=== PATIENT | male | born 1955 | race Caucasian/White ===

== ENCOUNTER 2019-09-05 17:02 | Outpatient (CLI) | payer MEDICARE, SELFPAY ==
[2019-09-05 19:57] LABS: Basophils # 0.1 10^3/uL (0.0-0.1); Basophils % 0.9 %; Eosinophils # 0.2 10^3/uL (0.0-0.8); Eosinophils % 3.1 %; Hematocrit 45.7 % (42.0-52.0); Hemoglobin 14.3 g/dL (11.7-16.6); Lymphocytes # 1.6 10^3/uL (0.8-4.8); Lymphocytes % 24.7 %; Mean Corpuscular HGB Conc 31.3 g/dL (30.0-36.0); Mean Corpuscular Hemoglobin 26.9 pg (28.0-34.0); Mean Corpuscular Volume 86.1 fL (80-94); Mean Platelet Volume 11.1 fL (7.4-10.4); Monocytes # 0.4 10^3/uL (0.2-0.9); Monocytes % 5.9 %; Neutrophils # 4.2 10^3/uL (1.8-7.7); Neutrophils % 64.6 %; Nucleated Red Blood Cells % 0 %; Platelet Count 243 10^3/cmm (130-400); Red Blood Count 5.31 10^6/uL (4.1-5.3); Red Cell Distribution Width 13.3 % (12.1-15.1); White Blood Count 6.4 10^3/uL (4.0-10.0)
[2019-09-05 23:52] LABS: Thyroid Stimulating Hormone 1.84 uIU/mL (0.27-4.20)
[2019-09-06 00:15] LABS: Alanine Aminotransferase 19 U/L (0-41); Albumin Level 4.6 g/dL (3.5-5.2); Alkaline Phosphatase 58 IU/L (40-130); Anion Gap 18.5 (5-19); Blood Urea Nitrogen 14 mg/dL (8-23); Carbon Dioxide 24 mmol/L (22-29); Chloride 103 mmol/L (98-107); Chol HDL Ratio 4.02 mg/dL (1.0-5.00); Cholesterol 185 mg/dL (0-200); Globulin 2.1 g/dL (1.3-4.6); Glomerular Filtration Rate 85.2 mL/min (90-130); Glucose 95 mg/dL (65-115); HDL Cholesterol 46 mg/dL (60-100); LDL Cholesterol Calculated 119 mg/dL (50-129); LDL HDL Ratio 2.59 RATIO (0.00-3.22); Osmolality Calculated 288 mOsm/kg (285-295); Potassium 4.5 mmol/L (3.5-5.1); Sodium 141 mmol/L (136-145); Total Bilirubin 0.4 mg/dL (0.15-1.2); Total Protein 6.7 g/dL (6.6-8.7); Triglycerides 98 mg/dL (0-150)
[2019-09-06 00:59] LABS: Aspartate Amino Transferase 19 U/L (0-40)
== END 2019-09-05 17:03 | disposition home or self-care (01) ==
LOC: LAB 17:04
PROVIDERS: Family Provider Nurse Practitioner Family; Visit Provider Nurse Practitioner Family
DX: I10 Essential (primary) hypertension (principal); E78.5 Hyperlipidemia, unspecified; Z12.5 Encounter for screening for malignant neoplasm of prostate
CPT/HCPCS: 80053; 80061; 84153; 84443; 85025

== ENCOUNTER 2023-05-16 12:21 | Outpatient (CLI) | payer MEDICARE, SELFPAY ==
--- NOTE | 2023-05-16 12:30 | US_ITS ---
WS: [id number] RENAL ULTRASOUND HISTORY: ACCELERATED HYPERTENSION COMPARISON: None available. TECHNIQUE: 2-D and color Doppler imaging of the kidney submitted. Right kidney: 10.8 cm x 5.0 cm x 4.6 cm. Cortex: 1.1 cm Normal size kidney. No hydronephrosis. There are several renal cysts. The largest from the inferior p ole measures 1.8 x 1.5 x 1.6 cm. No solid mass. Left kidney: 11.3 cm x 4.9 cm x 5.8 cm. Cortex: 1.3 cm Normal size kidney. There is moderate hydronephrosis. Simple cortical cyst in the mid kidney measures 1.9 x 1.5 x 1.8 cm. Aorta: Normal. Urinary Bladder: Bladder is well distended. Bilateral ureteral jets are identified. IMPRESSION: 1. Moderate LEFT hydronephrosis. Consider additional evaluation to evaluate because of LEFT hydronep hrosis. If suspect renal stone consider noncontrast renal stone CT. If suspect mass obstruction obtai gilberto CT for uroepithelial evaluation. 2. Bilateral ureteral jets are noted within the urinary bladder. Suggesting incomplete LEFT ureteral obstruction of uncertain etiology. 3. Bilateral renal cyst. No solid mass.
== END 2023-05-16 12:22 | disposition home or self-care (01) ==
LOC: RAD 12:22
PROVIDERS: Visit Provider Nurse Practitioner Family
DX: I10 Essential (primary) hypertension (principal); N13.30 Unspecified hydronephrosis
CPT/HCPCS: 76770

== ENCOUNTER 2023-06-21 08:33 | Outpatient (CLI) | payer MEDICARE, SELFPAY ==
--- NOTE | 2023-06-21 08:36 | CT_ITS ---
WS: [id number] CT ABDOMEN AND PELVIS NONCONTRAST HISTORY: LEFT HYDRONEPHROSIS TECHNIQUE: Imaging performed through the abdomen and pelvis. Coronal and sagittal reformats are submi tted. All CT scans at [facility] use at least one of these dose optimization techniques: auto mated exposure control; mA and/or kV adjustment per patient size (includes targeted exams where dose is matched to clinical indication); or iterative reconstruction. DLP: 288.97 mGy.cm COMPARISON: None available. Lower thorax: Mild dependent changes at the lung bases. Mild enlargement of the heart and small peric ardial effusion. Moderate size hiatal hernia. Liver: Normal size liver. There are a few scattered too small to characterize hypodensities. Gallbladder: Normal gallbladder. No pericholecystic fluid or cholelithiasis. No gallbladder wall thic [place]. Pancreas: Normal size and attenuation. Normal pancreatic duct. No pancreatitis or mass. Spleen: Normal. Adrenal glands: Normal. No mass. Right kidney: Normal size kidney. Exophytic mass from the lower pole and mid lateral kidney. Cysts we re identified on a prior ultrasound. No renal obstruction. Left kidney: There are large parapelvic cysts in the renal pelvis and also a renal cyst. These parape lvic cysts appears similar to hydronephrosis on the prior renal ultrasound. On the prior ultrasound t he calyces appeared dilated. By CT the calyces are not dilated. No secondary findings of enlarged kid wicho or perinephric stranding. There is a nonobstructing renal calcification in the lower pole. Aorta: Normal abdominal aorta, no aneurysm or atherosclerosis. No free fluid, intraperitoneal air or significant lymphadenopathy. GI tract: Normal noncontrast imaging of the stomach, small bowel and colon. No obstruction or wall th ickening. Normal appendix. Abdominal wall: Negative. No hernia. Pelvis: No free fluid or adenopathy. Mild prostate enlargement. Osseous structures: Mild anterior wedging of T10 and T11. No acute spine fracture. IMPRESSION: 1. LEFT renal pelvis is distended due to multiple large parapelvic cysts. No calyceal distention. Th is is these changes are most consistent with parapelvic cysts and not hydronephrosis. 2. RIGHT renal cyst. 3. No GI tract obstruction. 4. Moderate size hiatal hernia. 5. Mild cardiac enlargement and small pericardial effusion.
== END 2023-06-21 08:34 | disposition home or self-care (01) ==
LOC: RAD 08:33
PROVIDERS: PCP Nurse Practitioner Family; Visit Provider Nurse Practitioner Family
DX: N13.30 Unspecified hydronephrosis (principal)
CPT/HCPCS: 74176